=== PATIENT | female | born 2000 | race Two or more races ===

== ENCOUNTER → 2019-01-18 | Outpatient (CLI) | payer SELFPAY | LOC: OD 14:26 | PROVIDERS: ATTEND Family Medicine Geriatric Medicine | DX: E66.3 Overweight (principal); R07.9 Chest pain, unspecified; Z78.9 Other specified health status; Z29.9 Encounter for prophylactic measures, unspecified; F41.9 Anxiety disorder, unspecified; Z68.25 Body mass index [BMI] 25.0-25.9, adult ==

== ENCOUNTER 2019-10-28 20:53 | Emergency (ER) | payer BC ==
--- NOTE | 2019-10-28 21:26 | ER Document Report ---
ED Medical Screen (RME) - General Chief Complaint: Psych Problem Stated Complaint: ALTERED MENTAL STATUS Time Seen by Provider: 10/28/19 21:04 Primary Care Provider: PADILLA DOSHI MD [Primary Care Provider] - Follow up as needed Mode of Arrival: Ambulatory Information source: Patient Notes: 18-year-old female patient with history of anxiety disorder presenting to the emergency department with complaints of anxiety, depression and thoughts of suicide. Patient reports earlier today she took 7 to 8 tablets of her Xanax that she was recently prescribed. She states that they were 0.5 mg tablets. She states her friend showed up and noticed that she was distraught. Patient reports that her friend had showed up she would have taken the rest of the pills. Patient is alert, oriented, flat affect, tearful. I have greeted and performed a rapid initial assessment of this patient. A comprehensive ED assessment and evaluation of the patient, analysis of test r esults and completion of the medical decision making process will be conducted by additional ED providers. I have specifically instructed the patient or family members with the patient to immediately return to any nursing staff should anything change in the patient's condition or with their chief complaint. TRAVEL OUTSIDE OF THE [place] IN LAST 30 DAYS: No Physical Exam - Vital signs Vitals: Temp Pulse Resp BP Pulse Ox 98.9 F 93 16 123/73 99 10/28/19 21:01 10/28/19 21:01 10/28/19 21:01 10/28/19 21:01 10/28/19 21:01 Course - Vital Signs Vital signs: Temp Pulse Resp BP Pulse Ox 98.9 F 93 16 123/73 99 10/28/19 21:01 10/28/19 21:01 10/28/19 21:01 10/28/19 21:01 10/28/19 21:01 Doctor's Discharge - Discharge Referrals: PADILLA DOSHI MD [Primary Care Provider] - Follow up as needed
[2019-10-28 21:59] LABS: ABSOLUTE BASOPHILS # (AUTO) 0.1 10^3/uL (0.0-0.2); ABSOLUTE EOSINOPHILS # (AUTO) 0.1 10^3/uL (0.0-0.6); ABSOLUTE LYMPHOCYTES (AUTO) 2.8 10^3/uL (0.5-4.7); ABSOLUTE MONOCYTES (AUTO) 0.7 10^3/uL (0.1-1.4); ABSOLUTE NEUT (AUTO) 5.2 10^3/uL (1.7-8.2); BASOPHILS % (AUTO) 0.7 % (0-2); EOSINOPHILS % (AUTO) 0.9 % (0-6); HEMATOCRIT 41.5 % (36.0-47.0); HEMOGLOBIN 14.2 g/dL (12.0-15.5); LYMPHOCYTES % (AUTO) 31.3 % (13-45); MEAN CORPUSCULAR HEMOGLOBIN 30.1 pg (27.0-33.4); MEAN CORPUSCULAR HGB CONC 34.3 g/dL (32.0-36.0); MEAN CORPUSCULAR VOLUME 88 fl (80-97); MONOCYTES % (AUTO) 8.3 % (3-13); PLATELET COUNT 289 10^3/uL (150-450); RED BLOOD COUNT 4.73 10^6/uL (3.72-5.28); RED CELL DISTRIBUTION WIDTH 13.5 % (11.5-14.0); SEGMENTED NEUTROPHILS % (AUTO) 58.8 % (42-78); TOTAL CELLS COUNTED % (AUTO) 100 %; WHITE BLOOD COUNT 8.8 10^3/uL (4.0-10.5)
[2019-10-28 22:12] LABS: ALBUMIN 4.9 g/dL (3.5-5.0); ALKALINE PHOSPHATASE 72 U/L (38-126); ANION GAP 9 (5-19); ASPARTATE AMINO TRANSFERASE 28 U/L (14-36); BLOOD UREA NITROGEN 12 mg/dL (7-20); CALCIUM 9.9 mg/dL (8.4-10.2); CARBON DIOXIDE 26 mmol/L (22-30); CHLORIDE 105 mmol/L (98-107); GLUCOSE 85 mg/dL (75-110); TOTAL PROTEIN 7.8 g/dL (6.3-8.2)
[2019-10-28 22:30] LABS: ACETAMINOPHEN < 10 ug/mL (10-30); ALCOHOL < 10 mg/dL (NONE DETECTED); SALICYLATE < 1.0 mg/dL (2.0-20.0)
--- NOTE | 2019-10-28 22:57 | ER Document Report ---
ED Psych Disorder / Suicide - General Chief Complaint: Psych Problem Stated Complaint: ALTERED MENTAL STATUS Time Seen by Provider: 10/28/19 21:04 Primary Care Provider: PADILLA DOSHI MD [COMMUNITY BASED STAFF] - Follow up as needed Mode of Arrival: Ambulatory TRAVEL OUTSIDE OF THE [place] IN LAST 30 DAYS: No - HPI Notes: 18-year-old female presents with suicidal ideations. Patient states that she has been diagnosed with anxiety and panic attacks, has been [facility] various medications since 2017. She reports recent life stressors increasing her anxi ety, her grandfather and she went through a break-up. She reports for the past 3 days she has had increasing anxiety and panic symptoms. She did reach out to her physician, she was prescribed Xanax and an SNRI "that starts with a V". She reports that this morning around 10 AM she took about 8 tabs of 0.5 mg Xanax as a suicidal gesture. She states that she passed out and woke up around 5 PM to her friend. She is here on a voluntary basis. She denies any self- injurious behavior. She does consume alcohol. - Related Data Allergies/Adverse Reactions: No Known Allergies Allergy (Unverified 10/28/19 21:30) Home Medications: xanax, velafaxine, control Past Medical History - General Information source: Patient - Social History Smoking Status: Never Smoker Chew tobacco use (# tins/day): No Frequency of alcohol use: Social Drug Abuse: None Family History: Reviewed & Not Pertinent Patient has homicidal ideation: No Psychiatric Medical History: Reports: Hx Depression Review of Systems - Review of Systems Constitutional: No symptoms reported EENT: No symptoms reported Cardiovascular: No symptoms reported Respiratory: No symptoms reported Gastrointestinal: No symptoms reported Genitourinary: No symptoms reported Female Genitourinary: No symptoms reported Musculoskeletal: No symptoms reported Skin: No symptoms reported Hematologic/Lymphatic: No symptoms reported Neurological/Psychological: Suicidal ideation Physical Exam - Vital signs Vitals: Temp Pulse Resp BP Pulse Ox 98.9 F 93 16 123/73 99 10/28/19 21:01 10/28/19 21:01 10/28/19 21:01 10/28/19 21:01 10/28/19 21:01 - General General appearance: Appears well In distress: None - HEENT Head: Normocephalic, Atraumatic Extraocular movements intact: Yes Pupils: PERRL - Respiratory Breath sounds: Normal - Cardiovascular Rhythm: Regular Heart sounds: Normal auscultation - Abdominal Tenderness: Nontender - Extremities General upper extremity: Normal inspection General lower extremity: Normal inspection - Neurological Neuro grossly intact: Yes Cognition: Normal Orientation: AAOx4 Motor strength normal: LUE, RUE, LLE, RLE - Psychological Associated symptoms: No: Circumferential speech, Psychomotor agitation - Skin Skin Temperature: Warm Course - Re-evaluation Re-evalutation: 10/28/19 23:13 18-year-old female here with suicidal ideations, intentionally took 8 tabs of 0.5 mg Xanax greater than 12 hours ago. She did not exhibit any altered mental status, no respiratory depression. She is alert and oriented. Pupils are equal and reactive. Will consider her to be outside the window for toxic benzo ingestion. She is here voluntarily, is agreeable to psychiatric evaluation in the morning. Labs and urine to be checked via clearance process. 10/29/19 01:06 No leukocytosis or left shift. No acute anemia. Electrolytes within normal limits. Creatinine normal. No UTI. negative. APAP/salicylates undetectable. UDS positive for benzos as anticipated. Ethanol negative. Patient is medically cleared at this time. She will board in the ED until psychiatry can see her in the morning. She currently remains a voluntary status. - Vital Signs Vital signs: Temp Pulse Resp BP Pulse Ox 98.6 F 70 17 131/74 H 98 10/28/19 23:49 10/28/19 23:49 10/28/19 23:49 10/28/19 23:49 10/28/19 23:49 - Laboratory Result Diagrams: 10/28/19 21:44 10/28/19 21:44 Laboratory results interpreted by me: 10/28/19 10/28/19 21:44 21:44 Urine Blood SMALL H Ur Leukocyte Esterase TRACE H Salicylates < 1.0 L Acetaminophen < 10 L Discharge - Discharge Clinical Impression: Suicidal ideations Disposition: OTHER Referrals: PADILLA DOSHI MD [COMMUNITY BASED STAFF] - Follow up as needed
--- NOTE | 2019-10-28 23:46 | EKG REPORT ---
SEVERITY:- ABNORMAL ECG - SINUS RHYTHM INCOMPLETE RIGHT BUNDLE BRANCH BLOCK : Confirmed by: Leesa Sykes 28-Oct-2019 23:45:44
[2019-10-29 00:12] LABS: APPEARANCE,URINE SLIGHTLY-CLOUDY; BILIRUBIN,URINE NEGATIVE (NEGATIVE); COLOR,URINE YELLOW; GLUCOSE, URINE NEGATIVE (NEGATIVE); KETONES,URINE NEGATIVE (NEGATIVE); LEUKOCYTE ESTERASE,URINE TRACE (NEGATIVE); NITRITE,URINE NEGATIVE (NEGATIVE); PROTEIN,URINE NEGATIVE (NEGATIVE); URINE SPECIFIC GRAVITY 1.017; UROBILINOGEN,URINE NEGATIVE mg/dL (<2.0)
[2019-10-29 00:26] LABS: URINE AMPHETAMINES SCREEN NEGATIVE; URINE BARBITURATES SCREEN NEGATIVE; URINE COCAINE SCREEN NEGATIVE; URINE MARIJUANA (THC) SCREEN NEGATIVE; URINE METHADONE SCREEN NEGATIVE; URINE PHENCYCLIDINE SCREEN NEGATIVE
[2019-10-29 00:27] LABS: URINE BENZODIAZEPINES SCREEN UNCONFIRMED POSITIVE
--- NOTE | 2019-10-29 13:20 | ER Document Report ---
Doctor's Note Notes: 10/29/19 13:00 PHYSICAL EXAMINATION: GENERAL: Well-appearing and in no acute distress. HEAD: Atraumatic, normocephalic. EYES: sclera anicteric, conjunctiva are normal. ENT: nares patent. Moist mucous membranes. NECK: Normal range of motion, supple without lymphadenopathy LUNGS: CTAB and equal. No wheezes rales or rhonchi. HEART: Regular rate and rhythm without murmurs ABDOMEN: Soft, nontender EXTREMITIES: Normal range of motion, no pitting edema. No cyanosis. BACK: No CVA tenderness NEUROLOGICAL: Cranial nerves grossly intact. Normal speech. Normal gait. PSYCH: Normal mood, normal affect. SKIN: Warm, Dry, normal turgor, no rashes or lesions noted Patient medically clear for discharge or transfer pending behavioral health team disposition. 10/29/19 16:21 Patient does not meet IVC criteria at this time per behavioral health team. Patient is medically clear for discharge. Behavioral health team does recommend adding BuSpar 5 mg orally twice a day.
[2019-10-29] MEDS ORDERED: BUSPIRONE HCL 10 MG TABLET PO ONE (13:38)
[2019-10-29] MEDS ORDERED: VENLAFAXINE HCL 37.5 MG CAP.SR.24H PO ONE (13:38)
[2019-10-29 16:55] VITALS: BP 130/64
--- NOTE | 2019-10-31 13:09 | PSYCHOLOGICAL NOTE ---
Psych Note - Psych Note Date seen by psych provider: 10/29/19 Time seen by psych provider: 11:18 - Evaluation with patient from [id number]. Friend Collateral from [id number]. Discussion with patient and mother about plan of care for discharge at 1550. At 1554 contact [facility] for follow up services. Psych Note: Patient is a 18 year old female who presented to the Emergency Department last evening via privately owned vehicle/friend for suicidal ideation with a plan, reported taking seven or eight Xanax 0.5MG, increased depression, psychosocial stress (school, work, family living in [place] and not being able to visit, grandfather recently and she was unable to get home) and increased alcohol intake the past 2 weeks. Patient reported feeling "alright" today. She identified she has "bad anxiety and a panic attacks, yesterday it worsened, and she had suicidal ideation." She further stated "luckily my friend showed up." Patient admitted she took about eight of her prescribed Xanax 0.5MG and she thought she'd have taken the rest if her friend had not shown up. She denied any history of overdose attempts or trying to kill herself. She denied current suicidal ideation and stated "I think I am just really down." Patient noted [facility] prescribed her the Xanax (0.5MG) and Effexor Hcl ER (37.5MG daily). She identified she was on Lexapro (made her feel worse, increased depression and suicidal ideation) and Zoloft (no change she felt the same). Patient denied previous mental health hospitalizations. She acknowledged she had counselors at school and did some AA related therapy/groups for 6 months in the past. Patient stated drinking was an issue which was part of the reason she got away from [place]. She admitted too an increase in alcohol intake the past couple weeks. Patient admitted to being home sick, not getting to go home for visits like her friends during breaks, and being upset about not getting home for grandfather's (she noted she was not close to grandfather, her father was, she just wanted to be there with and for family), she identified when he friends go home to visit/she is left alone is when she often drinks, and she stated "I stress a lot about school." Patient reported family history of mental health: parents and brother deal with anxiety. Patient reported she resides alone. Patient was alert and oriented to self, person, place, time and situation. Mood was euthymic with congruent affect. She denied current suicidal and homicidal ideation. Patient did not appear to be responding to internal stimuli as evidenced by fair eye contact, answering questions appropriately when addressed, being engaged and carrying on dialogue conversation. Thought processes were linear and organized. Conversational speech was within normal limits for rate, tone and prosody. Intellectual abilities are estimated to be average. Insight, judgment and impulse control were fair as evidenced by being engaged and thought reluctant willing to not only include friend but mother in plan of care for discharge. From [id number] discussed plan of care with friend Vanessa ([phone]). She stated she did reach out to patient's mother who flew in this morning. She further noted she dropped patient off at the Emergency Department about 1230- 1300. She stated she thinks patient's mother is going to try to stay a week. Friend agreed to be in charge of medications and administration once mother leaves to go back to [place]. She stated she lives close to patient so checking in and being in charge of medications would not be an issue. At 1550 spoke to patient and mother Denae (present at bedside) about plan of care. Mother confirmed she is going to try to stay for a week. She agreed to be in charge of medications and administration while present. Both patient and mother informed friend Vanessa agreed to help and be in control of medications when mother went back to [place]. At 1554 spoke to Maria Guadalupe from [facility] ([facility]). Made new patient referral. Tentative appointment is next week at [address] Licea as long as patient does her intake packet and set up via emailed link. Patient and mother provided with all necessary information which included asking for Omid at the agency if any troubles with accessing link via email/completing paperwork online. Clinical Presentation: Suicidal ideation with plan to take prescribed medications and reported taking eight Xanax 0.5MG Psychosocial Stress Home sickness Increased alcohol intake with history of use History of depression and anxiety Family history anxiety Medication recommendations made by the psychiatric medication provider Dr. Flaco LANCE., includes: Discontinue Xanax 0.5MG daily for anxiety Add Buspar 5MG twice a day for anxiety/calming effect/depression/sleep Continue Effexor Hcl ER 37.5MG daily for depression/increase energedy/curg alcohol cravings Impression/Plan: Patient is cleared from acute psychiatric services. She denied current suicidal ideation, denied previous attempts, admitted to taking eight of her Xanax 0.5MG and thinking she would have taken more if her friend would not have shown up. She was able to identify stresses. She discussed many of them. Both mother and friend included in plan of care. One of them to be in charge of medications and administration. Arranged follow up with [facility] for medication management and therapy. Provided patient and mother with the outpatient mental health resource sheet which documented appointment information and highlighted both mobile crisis numbers. Consulted with Dr. Momin regarding the management and care of patient. ED Physician in agreement with recommendations.
== END 2019-10-29 17:04 | disposition home or self-care (01) ==
LOC: ER 20:53
DX: T42.4X2A Poisoning by benzodiazepines, intentional self-harm, initial encounter (principal); F41.9 Anxiety disorder, unspecified; F32.9 Major depressive disorder, single episode, unspecified; Z63.4 Disappearance and death of family member; Z63.0 Problems in relationship with spouse or partner; Z79.3 Long term (current) use of hormonal contraceptives
CPT/HCPCS: 93005; 99285; 36415; 80307 ×4; 85025; 81025; 80053; 81001; 93010; J3490